=== PATIENT | male | born 1985 | race Caucasian/White ===

== ENCOUNTER 2020-12-07 15:12 | Emergency (ER) | payer BC ==
[~2020-12-07] VITALS: Ht 185.4 cm; Wt 90.9 kg
[~2020-12-07 15:12] MED LIST: NO HOME MEDICATIONS
[2020-12-07 15:21] VITALS: TEMP 98
[2020-12-07 15:58] LABS: BASO # 0.1 (0.0-0.2); BASO % 0.7 % (0.0-2.0); EOS # 0.3 (0.0-0.7); EOS % 2.7 % (0-4.0); GRAN # 5.8 (1.4-6.5); GRAN % 62.9 % (42.2-75.2); HEMATOCRIT 45.5 % (42.0-52.0); LYMPH # 2.3 (1.2-3.4); LYMPH % 25.4 % (20.0-51.0); MEAN CELL VOLUME 85 fl (80.0-100.0); MEAN CORPUSCULAR HEMOGLOBIN 28 pg (27.0-31.0); MEAN CORPUSCULAR HGB CONC 33 g/dl (33.0-37.0); MEAN PLATELET VOLUME 10.6 fl (7.4-10.4); MONO # 0.7 (0.1-0.6); MONO % 7.9 % (1.7-9.3); PLATELET COUNT 235 K/mm3 (130-400); RED BLOOD COUNT 5.36 M/mm3 (4.20-5.60); REDCELL DISTRIBUTION WIDTH-CV 12.5 % (11.5-14.5)
[2020-12-07 17:09] VITALS: BP 136/97; PULSE 62
== END 2020-12-07 17:08 | disposition home or self-care (01) ==
LOC: COL.ER 15:12
PROVIDERS: Physician Assistant
DX: S20.211A Contusion of right front wall of thorax, initial encounter (principal); F17.200 Nicotine dependence, unspecified, uncomplicated; Z57.9 Occupational exposure to unspecified risk factor; W22.8XXA Striking against or struck by other objects, initial encounter
CPT/HCPCS: J1885